=== PATIENT | female | born 1990 | race Caucasian/White ===

== ENCOUNTER → 2017-03-20 | Outpatient (CLI) | payer OTHER | LOC: GMAJ 16:32 | PROVIDERS: ATTEND Family Medicine | DX: D50.9 Iron deficiency anemia, unspecified (principal) ==

== ENCOUNTER 2017-06-13 19:04 | Emergency (ER) | payer OTHER ==
[2017-06-13] MEDS ORDERED: LACTATED RINGERS 1,000 ML IVS ONE (21:08)
--- NOTE | 2017-06-13 23:24 | ED.PDOC ---
History of Present Illness - General Chief Complaint: GI Problem Stated Complaint: nausea/vomiting/diarrhea Time Seen by Provider: 06/13/17 23:12 Source: patient Exam Limitations: no limitations - History of Present Illness Initial Comments: Asher Josue 27 y/o female stated that she had nausea vomiting diarrhea this morning which got worse this evening so decided to be seen here at er.Stated that she ate chicken,potatoes last night. Timing/Duration: other - 8 hours Severity: moderate Improving Factors: nothing Worsening Factors: eating Associated Symptoms: nausea/vomiting Allergies/Adverse Reactions: Allergies NO KNOWN ALLERGY Allergy (Unverified 04/20/15 12:41) Home Medications: Ambulatory Orders Lidocaine Viscous 2% [Xylocaine Viscous 2%] 5 - 10 ml PO Q3H PRN #1 bottle 04/20 Promethazine HCl 50 mg PO TID PRN #20 tab 06/13/17 Sulfa/Trimeth 800/160 (Ds) Tab [Bactrim DS Tab] 1 ea PO BID #14 tab 06/13/17 Review of Systems - Review of Systems Constitutional: States: no symptoms reported EENTM: States: no symptoms reported Respiratory: States: no symptoms reported Cardiology: States: no symptoms reported Gastrointestinal/Abdominal: States: see HPI Genitourinary: States: no symptoms reported Musculoskeletal: States: back pain Skin: States: no symptoms reported Neurological: States: no symptoms reported Endocrine: States: no symptoms reported Hematologic/Lymphatic: States: no symptoms reported Past Medical History (General) - Patient Medical History Hx Seizures: No Surgical History: other - tubal ligation - Female History Hx Last Menstrual Period: 05/24/17 Patient : No Family Medical History - Family History Mother Family History: Unknown Hx Family Hypertension: Yes - parents Hx Family Diabetes: Yes - parents Physical Exam - Physical Exam General Appearance: Alert, No apparent distress Eye Exam: bilateral normal Ears, Nose, Throat: hearing grossly normal, normal ENT inspection, normal pharynx Neck: non-tender, full range of motion, supple Respiratory: chest non-tender, lungs clear, normal breath sounds Cardiovascular/Chest: normal peripheral pulses, regular rate, rhythm, no murmur Peripheral Pulses: radial,right: 1+, radial,left: 1+ Gastrointestinal/Abdominal: normal bowel sounds, non tender, soft, no organomegaly Back Exam: normal inspection, no CVA tenderness, no vertebral tenderness Extremity: non-tender, no pedal edema, no calf tenderness Neurologic: no motor/sensory deficits, alert, oriented x 3 Skin Exam: normal color, warm/dry Lymphatic: no adenopathy Progress - Progress Progress: 06/13/17 23:27 06/13/17 20:45 URINE CULTURE W/COLONY COUNT Stat Laboratory Results - last 24 hr 06/13/17 06/13/17 06/13/17 20:45 20:55 20:55 WBC 10.9 H RBC 5.36 Hgb 14.9 Hct 45.3 MCV 84.5 MCH 27.8 MCHC 32.9 L RDW 21.8 H Plt Count 201 MPV 10.6 H Absolute Neuts (auto) 9.10 H Absolute Lymphs (auto) 1.00 Absolute Monos (auto) 0.50 Absolute Eos (auto) 0.20 Absolute Basos (auto) 0.00 Neutrophils % 83.9 H Lymphocytes % 9.3 L Monocytes % 4.2 Eosinophils % 2.2 Basophils % 0.4 Normal RBC Morphology 2+aniso Sodium 136 Potassium 3.9 Chloride 102 Carbon Dioxide 24 Anion Gap 13.9 BUN 11 Creatinine 1.00 BUN/Creatinine Ratio 11.0 Random Glucose 105 Serum Osmolality 271.7 L Calcium 9.7 Total Bilirubin 0.6 AST 18 ALT 20 Alkaline Phosphatase 67 Serum Total Protein 8.6 H Albumin 4.4 Globulin 4.2 H Albumin/Globulin Ratio 1.0 L Lipase 17 L Urine Color Yellow Urine Appearance Sl cloudy Urine pH 6.0 Ur Specific [place] 1.025 Urine Protein Trace Urine Glucose (UA) Negative Urine Ketones 15 H Urine Blood Negative Urine Nitrite Negative Urine Bilirubin Small H Urine Urobilinogen 0.2 Ur Leukocyte Esterase Small H Urine RBC 0-1 Urine WBC 5-10 H Ur Epithelial Cells 10-20 Amorphous Sediment Trace Urine Bacteria 1+ Urine Mucus Small Departure - Departure Clinical Impression: Diarrhea Nausea & vomiting Qualifiers: Vomiting type: unspecified Vomiting Intractability: unspecified Qualified Code( s): R11.2 - Nausea with vomiting, unspecified Time of Disposition: 23:31 Disposition: Discharge to Home or Self Care Departure Forms: ED Discharge - Pt. Copy, Patient Portal Self Enrollment Diet: bland diet, other - AVOID GREASY,SPICY,DAIRY FOODS UNTIL BETTER Referrals: Siddharth Macias MD [Primary Care Provider] - 1-2 Weeks Prescriptions: Promethazine HCl 50 mg PO TID PRN #20 tab PRN Reason: Nausea Sulfa/Trimeth 800/160 (Ds) Tab [Bactrim DS Tab] 1 ea PO BID #14 tab Home Medications: Ambulatory Orders Lidocaine Viscous 2% [Xylocaine Viscous 2%] 5 - 10 ml PO Q3H PRN #1 bottle 04/20 Promethazine HCl 50 mg PO TID PRN #20 tab 06/13/17 Sulfa/Trimeth 800/160 (Ds) Tab [Bactrim DS Tab] 1 ea PO BID #14 tab 06/13/17 Additional Instructions: RETURN TO EMERGENCY ROOM NEEDED;Follow up with primary md 06/16/2017 call for appointment
[2017-06-13] MEDS ORDERED: KETOROLAC TROMETHAMINE INJ 60 MG/2 ML VIAL IM ONE (23:28)
[2017-06-13] MEDS ORDERED: cefTRIAXone SODIUM 1 GM VIAL IM ONE (23:29)
[2017-06-13] MEDS ORDERED: LIDOCAINE 1% 10 ML VIAL INJ ONE (23:43)
[2017-06-14 01:43] VITALS: BP 126/72
[2017-06-14 01:45] VITALS: TEMP 98.2; O2SAT 96
== END 2017-06-14 00:10 | disposition home or self-care (01) ==
LOC: ER 19:04
DX: R11.2 Nausea with vomiting, unspecified (principal)
CPT/HCPCS: 36415; 80053; 81001; 83690; 85025; 87086; J0696; J1885; J7120

== ENCOUNTER 2018-01-01 19:28 | Emergency (ER) | payer OTHER ==
--- NOTE | 2018-01-01 21:14 | ED.PDOC ---
History of Present Illness - General Chief Complaint: Abdominal Pain Stated Complaint: Cramping Abdominal Pain x 3 days Time Seen by Provider: 01/01/18 21:02 Information Source: patient Exam Limitations: no limitations - History of Present Illness Initial Comments: Asher Josue 27 y/o female came to ER with cramping lower abdominal pain for 3 days with loss off appetite,no diarrhea, no dysuria,constipation,no fever or chills.No chronic medical problems. Pain Radiation: back, other - groin Quality: cramping Timing/Duration: other - 3 days Improving Factors: nothing Worsening Factors: nothing Associated Symptoms: other - see hpi Review of Systems - Review of Systems Constitutional: States: no symptoms reported EENTM: States: no symptoms reported Respiratory: States: no symptoms reported Cardiology: States: no symptoms reported Gastrointestinal/Abdominal: States: see HPI Musculoskeletal: States: no symptoms reported Skin: States: no symptoms reported All other Systems: Reviewed and Negative, No Change from Baseline Past Medical History (General) - Patient Medical History Hx Seizures: No Hx Stroke: No Hx Cardiac Disorders: No Hx Congestive Heart Failure: No Hx Diabetes: No Hx Cancer: No Hx Hepatitis C: No Surgical History: other - BTL - Vaccination History Hx Tetanus, Diphtheria Vaccination: No Hx Influenza Vaccination: No Hx Pneumococcal Vaccination: No - Social History Hx Tobacco Use: Yes Hx Chewing Tobacco Use: No Hx Alcohol Use: No Hx Substance Use: No Hx Substance Use Treatment: No Hx Depression: No Feels Threatened In Home Enviroment: No Feels Threatened In a Relationship: No Hx Physical Abuse: No Hx Emotional Abuse: No Hx Suspected Abuse: No - Female History Patient is a Female of Child Bearing Age (10 -59 yrs old): Yes Hx Last Menstrual Period: 01/01/18 Patient : No Family Medical History - Family History Mother Family History: Unknown Hx Family Hypertension: Yes - parents Hx Family Diabetes: Yes - parents Physical Exam - Physical Exam General Appearance: Alert, Comfortable, No apparent distress Eyes, Ears, Nose, Throat Exam: normal ENT inspection, pharynx normal Neck: non-tender, full range of motion, supple Respiratory: lungs clear, normal breath sounds, no respiratory distress Cardiovascular/Chest: normal peripheral pulses, regular rate, rhythm, no murmur Peripheral Pulses: No deficit Gastrointestinal/Abdominal: normal bowel sounds, non tender, soft Back Exam: no CVA tenderness, no vertebral tenderness Extremity: normal range of motion, non-tender Neurologic: no motor/sensory deficits, alert, oriented x 3 Skin Exam: normal color, warm/dry Progress - Progress Progress: 01/01/18 21:22 Last Vital Signs Temp 97.2 F L 01/01/18 20:16 Pulse 80 01/01/18 20:16 Resp 18 01/01/18 20:16 BP 105/72 01/01/18 20:16 Pulse Ox 96 01/01/18 20:16 - Results/Orders Results/Orders: Laboratory Tests 01/01/18 01/01/18 01/01/18 20:02 20:02 20:17 WBC 8.2 RBC 4.80 Hgb 13.7 Hct 42.0 MCV 87.6 MCH 28.6 MCHC 32.7 L RDW 14.2 Plt Count 210 MPV 11.4 H Absolute Neuts (auto) 4.50 Absolute Lymphs (auto) 2.70 Absolute Monos (auto) 0.50 Absolute Eos (auto) 0.40 Absolute Basos (auto) 0.10 Neutrophils % 55.1 Lymphocytes % 32.8 Monocytes % 6.5 Eosinophils % 4.5 Basophils % 1.1 Sodium Potassium Chloride Carbon Dioxide Anion Gap BUN Creatinine BUN/Creatinine Ratio Random Glucose Serum Osmolality Calcium Total Bilirubin AST ALT Alkaline Phosphatase Serum Total Protein Albumin Globulin Albumin/Globulin Ratio Lipase Urine Color [place] H Urine Appearance Sl cloudy Urine pH 7.0 Ur Specific [place] 1.020 Urine Protein 30 Urine Glucose (UA) 100 H Urine Ketones Trace Urine Blood Small H Urine Nitrite Positive H Urine Bilirubin Small H Urine Urobilinogen 1.0 Ur Leukocyte Esterase Large H Urine RBC 1-3 Urine WBC 10-20 H Ur Epithelial Cells 1-3 Urine Bacteria 3+ H Urine Mucus Small Urine HCG, Qual Negative 01/01/18 20:17 WBC RBC Hgb Hct MCV MCH MCHC RDW Plt Count MPV Absolute Neuts (auto) Absolute Lymphs (auto) Absolute Monos (auto) Absolute Eos (auto) Absolute Basos (auto) Neutrophils % Lymphocytes % Monocytes % Eosinophils % Basophils % Sodium 138 Potassium 3.7 Chloride 105 Carbon Dioxide 24 Anion Gap 12.7 BUN 12 Creatinine 1.12 BUN/Creatinine Ratio 10.7 Random Glucose 98 Serum Osmolality 275.4 Calcium 9.4 Total Bilirubin 0.3 AST 16 ALT 13 Alkaline Phosphatase 52 Serum Total Protein 7.6 Albumin 3.8 Globulin 3.8 H Albumin/Globulin Ratio 1.0 L Lipase 21 L Urine Color Urine Appearance Urine pH Ur Specific [place] Urine Protein Urine Glucose (UA) Urine Ketones Urine Blood Urine Nitrite Urine Bilirubin Urine Urobilinogen Ur Leukocyte Esterase Urine RBC Urine WBC Ur Epithelial Cells Urine Bacteria Urine Mucus Urine HCG, Qual Departure - Departure Clinical Impression: Urinary tract infection Qualifiers: Urinary tract infection type: site unspecified Hematuria presence: with hematuria Qualified Code(s): N39.0 - Urinary tract infection, site not specified Time of Disposition: 22:13 Disposition: Discharge to Home or Self Care Condition: Good Departure Forms: ED Discharge - Pt. Copy, Patient Portal Self Enrollment Instructions: Urinary Tract Infection, DI for Urinary Tract Infection (UTI) Referrals: Siddharth Macias MD [Primary Care Provider] - 1-2 Weeks Prescriptions: Nitrofurantoin Monohydrate Mac [Macrobid] 100 mg PO BID #14 capsule Phenazopyridine HCl [Pyridium] 200 mg PO BID #10 tab Home Medications: Ambulatory Orders Escitalopram Oxalate [Lexapro] 20 mg PO DAILY 06/14/17 Nitrofurantoin Monohydrate Mac [Macrobid] 100 mg PO BID #14 capsule 01/01/18 Phenazopyridine HCl [Azo-Standard] 95 mg PO DAILY 01/01/18 Phenazopyridine HCl [Pyridium] 200 mg PO BID #10 tab 01/01/18 Additional Instructions: Drink extra fluids
[2018-01-01] MEDS: LACTATED RINGERS 1,000 ML IVS ONE (21:17)
[2018-01-01] MEDS ORDERED: levoFLOXacin 500MG IV 100 ML IVPB ONE (21:27)
[2018-01-01] MEDS: levoFLOXacin 500MG IV 500 MG in PREMIX BAG 1 BAG IVPB ONE (21:28)
[2018-01-01] MEDS: PHENAZOPYRIDINE HCL 200 MG TAB PO ONE (21:28)
[2018-01-01] MEDS: HYDROcodone 10MG/APAP 325MG 1 EA TAB PO ONE (22:24)
[2018-01-01 22:36] VITALS: BP 110/78; TEMP 98.2; O2SAT 99
== END 2018-01-01 22:34 | disposition home or self-care (01) ==
LOC: ER 19:28
DX: N39.0 Urinary tract infection, site not specified (principal); Z87.891 Personal history of nicotine dependence
CPT/HCPCS: 36415; 80053; 81001; 81025; 83690; 85025; 87086; 87088; 87186; J1956; J7120